=== PATIENT | female | born 1985 | race African-American/Black ===

== ENCOUNTER 2017-07-26 05:13 | Emergency (ER) | payer MEDICAID ==
[~2017-07-26 05:13] MED LIST: CYCL-36 PO; IBUP800 PO; PRED50 PO
[2017-07-26 05:14] VITALS: BP 139/69; PULSE 76; RESP 16; TEMP 98.2; O2SAT 99
[2017-07-26] MEDS ORDERED: diphenhydrAMINE HCL 50 MG/ML VIAL IVP ONE (05:30)
[2017-07-26] MEDS ORDERED: SODIUM CHLORIDE 0.9% FLUSH 10 ML FLUSH IVF PRN (05:30)
[2017-07-26] MEDS ORDERED: PROCHLORPERAZINE INJ 10 MG/2 ML VIAL IVP ONE (05:30)
[2017-07-26] MEDS ORDERED: KETOROLAC TROMETHAMINE 30 MG/ML (IVP) VIAL IVP ONE (05:30)
--- NOTE | 2017-07-26 05:34 | PD ---
HPI Chief Complaint: Headache Time Seen by Provider: 05:22 Travel History International Travel<30 days: No Contact w/Intl Traveler<30days: No Traveled to known affect area: No History of Present Illness HPI Patient is a 32-year-old female presenting to emergency for evaluation of a headache. Patient states it is frontal towards the right side of her head. She states it's been there for 3-4 days, she took Tylenol with no relief of her symptoms. Reports a history of headaches which are similar. She presented today because she was concerned that her blood pressure was elevated because of the headache. She denies any visual changes, chest pain, shortness of breath, weakness, nausea, photophobia. PFSH Past Medical History Medical History: Denies Significant Hx Diminished Hearing: No ?: Not Past Surgical History Surgical History: No Previous Surgery Social History Alcohol Use: Yes (SOCIAL ) Tobacco Use: No Substance Use: No Allergies-Medications (Allergen,Severity, Reaction): Coded Allergies: No Known Allergies (Unverified , 03/23/16) Reported Meds & Prescriptions Reported Meds & Active Scripts Active Flexeril (Cyclobenzaprine HCl) 10 Mg Tab 10 Mg PO TID PRN Motrin 800 Mg Tab (Ibuprofen) 800 Mg Tab 800 Mg PO Q8H PRN 14 Days Deltasone 50 Mg Tab (Prednisone) 50 Mg Tab 50 Mg PO DAILY Review of Systems Except as stated in HPI: all other systems reviewed are Neg Eyes: No: Blurred Vision HENT: Positive: Headaches, No: Lightheadedness, Neck Pain Cardiovascular: No: Chest Pain or Discomfort Respiratory: No: Shortness of Breath Gastrointestinal: No: Nausea Neurologic: No: Focal Abnormalities Physical Exam Narrative GENERAL: Well-developed, well-nourished, alert female. Resting comfortably in no acute distress. SKIN: Warm and dry. HEAD: Atraumatic. Normocephalic. EYES: Pupils equal and round. No scleral icterus. No injection or drainage. ENT: No nasal bleeding or discharge. Mucous membranes pink and moist. NECK: Trachea midline. No JVD. CARDIOVASCULAR: Regular rate and rhythm. RESPIRATORY: No accessory muscle use. Clear to auscultation. Breath sounds equal bilaterally. GASTROINTESTINAL: Abdomen soft, non-tender, nondistended. Hepatic and splenic margins not palpable. MUSCULOSKELETAL: Extremities without clubbing, cyanosis, or edema. No obvious deformities. NEUROLOGICAL: Awake and alert. No obvious cranial nerve deficits. Motor grossly within normal limits. Five out of 5 muscle strength in the arms and legs. Normal speech. PSYCHIATRIC: Appropriate mood and affect; insight and judgment normal. Data Data Last Documented VS Vital Signs Date Time Temp Pulse Resp B/P (MAP) Pulse Ox O2 Delivery O2 Flow Rate FiO2 07/26/17 05:14 98.2 76 16 139/69 (92) 99 Room Air Orders Orders Iv Access Insert/Monitor (07/26/17 05:22) Sodium Chloride 0.9% Flush (Ns Flush) (07/26/17 05:30) Ketorolac Inj (Toradol Inj) (07/26/17 05:30) Prochlorperazine Inj (Compazine Inj) (07/26/17 05:30) Diphenhydramine Inj (Benadryl Inj) (07/26/17 05:30) MDM Medical Decision Making Medical Screen Exam Complete: Yes Emergency Medical Condition: Yes Interpretation(s) Vital Signs Date Time Temp Pulse Resp B/P (MAP) Pulse Ox O2 Delivery O2 Flow Rate FiO2 07/26/17 05:14 98.2 76 16 139/69 (92) 99 Room Air Differential Diagnosis Cluster headache versus migraine versus tension-type headache versus hypertension versus other Narrative Course Patient presented with a headache that is similar to headache she's had the past. Her presentation to the emergency department today was due to a concern that her blood pressure was elevated because she had a headache, patient felt that headache could be a symptom of high blood pressure. Patient is neurologically intact with no focal deficits noted. Patient took Tylenol at 1: 30 AM this morning with no relief. Patient be given medications now to attempt to abort the headache. Will reassess. 0625 patient reassessed, she reports improvement in her headache. She was encouraged to follow up with a primary doctor, she was encouraged to return to emergency department for any new or worsening symptoms. She verbalized understanding of these instructions. She was encouraged to monitor her blood pressure home feeling well. She is encouraged to record results to bring to her primary doctor. Patient is stable for discharge. Diagnosis Primary Impression: Headache Qualified Codes: R51 - Headache Referrals: Primary Care Physician 2 days Patient Instructions: Acute Headache (ED), General Instructions Additional Instructions: Follow-up with her primary doctor Monitor her blood pressure at home Return to emergency department for any new or worsening symptoms Med/Other Pt SpecificInfo: No Change to Meds Disposition: 01 DISCHARGE HOME Condition: Stable Lamar Shah Jul 26, 2017 05:34
== END 2017-07-26 07:05 | disposition home or self-care (01) ==
LOC: NEPD 05:13
DX: R51 Headache (principal)
CPT/HCPCS: 96374; 96375; 99284; J0780; J1200; J1885

== ENCOUNTER 2018-01-03 01:34 | Emergency (ER) | payer MEDICAID ==
[~2018-01-03] VITALS: Ht 154.9 cm; Wt 82.0 kg
[2018-01-03 02:12] VITALS: BP 120/70; PULSE 67; RESP 18; TEMP 98.2; O2SAT 100
--- NOTE | 2018-01-03 03:40 | PD ---
HPI Chief Complaint: ENT Complaint Time Seen by Provider: 03:23 Travel History International Travel<30 days: No Contact w/Intl Traveler<30days: No Traveled to known affect area: No History of Present Illness HPI 32-year-old black female presents emergency department with a one-week history of subjective fever and chills, runny nose, cough, congestion, sore throat and general malaise. She denies any nausea vomiting. No abdominal pain or diarrhea. No dysuria frequency. No myalgias or arthralgias. Symptoms are moderate. Worse with cough. No alleviating factors. Denies . PFSH Past Medical History Medical History: Denies Significant Hx Diminished Hearing: No Tetanus Vaccination: < 5 Years ?: Not LMP: "A FEW WKS AGO" Past Surgical History Surgical History: No Previous Surgery Social History Alcohol Use: Yes (SOCIAL ) Tobacco Use: No Substance Use: No Allergies-Medications (Allergen,Severity, Reaction): Coded Allergies: No Known Allergies (Verified Adverse Reaction, Unknown, 01/03/18) Reported Meds & Prescriptions Reported Meds & Active Scripts Active No Active Prescriptions or Reported Medications Review of Systems Except as stated in HPI: all other systems reviewed are Neg Physical Exam Narrative GENERAL: Well-developed, well-nourished in no acute distress. Nontoxic appearing. HEAD: Normocephalic, atraumatic. EYES: Pupils equal round and reactive. Extraocular motions intact. No scleral icterus. No injection or drainage. ENT: TMs clear without erythema. The external auditory canals clear. Nose: clear . Posterior pharynx is pink and moist. No tonsillar edema or exudate. Uvula midline. Airway patent. NECK: Trachea midline.Supple, nontender, moves head freely. No central bony tenderness or spasm. CARDIOVASCULAR: Regular rate and rhythm without murmurs, gallops, or rubs. RESPIRATORY: Clear to auscultation. Breath sounds equal bilaterally. No wheezes , rales, or rhonchi. GASTROINTESTINAL: Abdomen soft, non-tender, nondistended. No hepato-splenomegaly , or palpable masses. No guarding. EXTREMITIES: No clubbing, cyanosis, or edema. No joint tenderness, effusion, or edema noted. BACK: Nontender without deformity or crepitance. No flank tenderness. Data Data Last Documented VS Vital Signs Date Time Temp Pulse Resp B/P (MAP) Pulse Ox O2 Delivery O2 Flow Rate FiO2 01/03/18 02:12 98.2 67 18 120/70 (87) 100 MDM Medical Decision Making Medical Screen Exam Complete: Yes Emergency Medical Condition: Yes Medical Record Reviewed: Yes Differential Diagnosis MDM: High Differential diagnoses: Pneumonia, bronchitis, URI, influenza, pharyngitis, URI Narrative Course Patient is given amoxicillin 500 mg p.o. This is URI Diagnosis Primary Impression: URI Patient Instructions: General Instructions Additional Instructions: Rest. Force fluids. Saltwater gargles. Tylenol and Advil. Chloraseptic Brookesmith Cepastat lozenge. Amoxicillin. Follow-up with a primary care doctor in one week. Return to the ER if any problems. Med/Other Pt SpecificInfo: Prescription(s) given Scripts No Active Prescriptions or Reported Meds Disposition: 01 DISCHARGE HOME Condition: Stable Cuate Rodriguez Jan 03, 2018 03:40
[2018-01-03] MEDS ORDERED: AMOXICILLIN (TRIHYDRATE) 500 MG CAP PO ONE (03:45)
[2018-01-03] MEDS ORDERED: AMOX500C PO (03:49)
== END 2018-01-03 03:57 | disposition home or self-care (01) ==
LOC: NEPD 01:34
DX: J06.9 Acute upper respiratory infection, unspecified (principal)
CPT/HCPCS: 99282

== ENCOUNTER 2018-03-14 15:44 | Emergency (ER) | payer SELFPAY ==
[~2018-03-14] VITALS: Ht 154.9 cm; Wt 81.0 kg
[~2018-03-14 15:44] MED LIST changes: +AMOX500C PO; -CYCL-36 PO; -IBUP800 PO; -PRED50 PO
[2018-03-14 15:50] VITALS: BP 134/69; PULSE 69; RESP 16; TEMP 99.3; O2SAT 100
[2018-03-14] MEDS ORDERED: LIDOCAINE 1%/EPINEPHrine 1:100,000 SOLN 20 ML VIAL INFIL ONE (16:00)
--- NOTE | 2018-03-14 16:00 | PD ---
HPI Chief Complaint: Lump, Cyst, Hernia Time Seen by Provider: 15:53 Travel History International Travel<30 days: No Contact w/Intl Traveler<30days: No Traveled to known affect area: No History of Present Illness HPI 33-year-old female presents to the emergency department for evaluation of "a boil to the back of my head". Patient states that she has noticed some pain and swelling to the area since she got new nathan on February 22. However, she just recently noticed that it has turned into a boil. Patient denies any fevers or chills. She has no medical problems and takes no prescribed medications. Current pain is 8/10, aching and throbbing, without radiation. She denies any chance of . Mild severity. PFSH Past Medical History Diminished Hearing: No ?: Not LMP: 02/23/18 Social History Alcohol Use: Yes (SOCIAL ) Tobacco Use: No Substance Use: No Allergies-Medications (Allergen,Severity, Reaction): Coded Allergies: No Known Allergies (Verified Adverse Reaction, Unknown, 03/14/18) Reported Meds & Prescriptions Reported Meds & Active Scripts Active No Active Prescriptions or Reported Medications Review of Systems Except as stated in HPI: all other systems reviewed are Neg Physical Exam Narrative GENERAL: Well-nourished, well-developed female patient, ambulatory. Afebrile SKIN: Focused skin assessment warm/dry. Patient has 3 cm area of induration/ fluctuance to the lower occipital scalp. No surrounding erythema. No active drainage. HEAD: Normocephalic. Atraumatic EYES: No scleral icterus. No injection or drainage. NECK: Supple, trachea midline. No JVD or lymphadenopathy. CARDIOVASCULAR: Regular rate and rhythm without murmurs, gallops, or rubs. RESPIRATORY: Breath sounds equal bilaterally. No accessory muscle use. Lung sounds are clear to auscultation peer GASTROINTESTINAL: Abdomen soft, non-tender, nondistended. MUSCULOSKELETAL: No cyanosis, or edema. Data Data Last Documented VS Vital Signs Date Time Temp Pulse Resp B/P (MAP) Pulse Ox O2 Delivery O2 Flow Rate FiO2 03/14/18 15:50 99.3 69 16 134/69 (90) 100 Orders Orders Wound Culture And Gram Stain (03/14/18 15:58) Lidocai-Epi 1%-1:100,000 Inj (Xylocaine- (03/14/18 16:00) Lidocaine Pf 1% Inj (Xylocaine-Mpf 1% In (03/14/18 16:11) Sulfamet-Trimeth Ds 800-160 Mg (Bactrim (03/14/18 16:30) Cephalexin (Keflex) (03/14/18 16:30) MDM Medical Decision Making Medical Screen Exam Complete: Yes Emergency Medical Condition: Yes Medical Record Reviewed: Yes Differential Diagnosis Abscess versus cellulitis versus cyst Narrative Course 33-year-old female presents to the emergency department for evaluation of abscess to her occipital scalp. Patient appears well. She gives verbal consent for incision and drainage. Patient instructed on proper wound care. She is given first dose of Bactrim and Keflex and will be discharged with prescriptions for same. The patient was discharged in stable condition with instructions, including return instructions and follow up instructions. Procedures Procedure Narrative INCISION AND DRAINAGE OF ABSCESS: The area was prepped and was sterilely draped. A subcutaneous wheal of 1% Xylocaine with a total number 3 mL was used to anesthetize the area. The area was properly anesthetized. A number 11 scalpel was used to make a 1 -cm incision across the area of the abscess. Cultures were obtained. The abscess was drained an irrigated with normal saline. Sterile dressing applied. Diagnosis Primary Impression: Abscess Referrals: Primary Care Physician call for appointment Patient Instructions: Abscess (ED), Abscess Incision and Drainage (DC), General Instructions Additional Instructions: Clean area twice daily with soap and water and apply [id number] antibiotic ointment. Take antibiotics as directed until gone. Follow-up with a primary care physician. Return to the emergency department for any acute worsening of symptoms. Med/Other Pt SpecificInfo: Prescription(s) given Scripts Cephalexin (Keflex) 500 Mg Cap 500 MG PO Q6H for Infection for 10 Days, #40 CAP 0 Refills Prov: Oly Alberto 03/14/18 Sulfamethoxazole-Trimethoprim (Bactrim DS) 800-160 Mg Tab 1 TAB PO BID for Infection, #20 TAB 0 Refills Prov: Oly Alberto 03/14/18 Disposition: 01 DISCHARGE HOME Condition: Stable Oly Alberto March 14, 2018 16:00
[2018-03-14] MEDS ORDERED: LIDOCAINE HCL 1% PF 30 ML VIAL ONE (16:11)
[2018-03-14] MEDS ORDERED: CEPHALEXIN MONOHYDRATE 500 MG CAP PO ONE (16:30)
[2018-03-14] MEDS ORDERED: SULFAMETHOXAZOLE-TRIMETHOPRIM DS 800-160 MG TAB PO ONE (16:30)
[2018-03-14] MEDS ORDERED: BACT800T5 PO (16:32)
[2018-03-14] MEDS ORDERED: CEPH-460 PO (16:32)
== END 2018-03-14 16:47 | disposition home or self-care (01) ==
LOC: NEPK 15:44
DX: L02.811 Cutaneous abscess of head [any part, except face] (principal); A49.02 Methicillin resistant Staphylococcus aureus infection, unspecified site
CPT/HCPCS: 10060; 86403; 87070; 87186; 87205